=== PATIENT | male | born 1955 | race Caucasian/White ===

== ENCOUNTER 2022-09-28 14:00 | Outpatient (RCR) | payer OTHER, SELFPAY | END 2022-12-28 14:35 | disposition home or self-care (01) | PROVIDERS: PCP Orthopaedic Surgery Orthopaedic Surgery of the Spine; Visit Provider Orthopaedic Surgery Orthopaedic Surgery of the Spine | DX: M54.16 Radiculopathy, lumbar region (principal); Z51.89 Encounter for other specified aftercare; M21.371 Foot drop, right foot; M62.81 Muscle weakness (generalized); R26.89 Other abnormalities of gait and mobility | CPT/HCPCS: 97162 ==